=== PATIENT | male | born 1980 | race Caucasian/White ===

== ENCOUNTER 2025-06-28 22:28 | Emergency (ER) | payer OTHER ==
[~2025-06-28] VITALS: Ht 177.8 cm; Wt 124.3 kg
[2025-06-28 23:24] VITALS: PULSE 72; RESP 18; TEMP 97.7
[2025-06-28] MEDS: TRAMADOL HCL 50 MG TAB PO ONE (23:54)
[2025-06-29] MEDS ORDERED: MELOXICAM15 MG PO (00:19)
[2025-06-29] MEDS ORDERED: ULTRAM 50MG50 MG PO (00:19)
[2025-06-29 00:35] VITALS: BP 112/78; PULSE 72; RESP 18; TEMP 98; O2SAT 98
== END 2025-06-29 00:35 | disposition home or self-care (01) ==
LOC: FSED 23:21
DX: S93.492A Sprain of other ligament of left ankle, initial encounter (principal); S93.692A Other sprain of left foot, initial encounter; X50.1XXA Overexertion from prolonged static or awkward postures, initial encounter; Y92.89 Other specified places as the place of occurrence of the external cause; I10 Essential (primary) hypertension; F32.A Depression, unspecified
CPT/HCPCS: 99283